=== PATIENT | male | born 1965 ===

== ENCOUNTER → 2019-08-31 | Outpatient (CLI) | payer OTHER | END | disposition home or self-care (01) | LOC: SONOGRAMA 10:05 → MAMO-SONO 11:15 | DX: S83.206D Unspecified tear of unspecified meniscus, current injury, right knee, subsequent encounter (principal) ==

== ENCOUNTER 2019-12-05 14:26 | Outpatient (CLI) | payer OTHER | END 2019-12-05 14:41 | disposition home or self-care (01) | LOC: LAB 14:26 | PROVIDERS: ATTEND Internal Medicine Geriatric Medicine | DX: D69.49 Other primary thrombocytopenia (principal) ==